=== PATIENT | female | born 1975 | race Caucasian/White ===

== ENCOUNTER → 2017-06-30 | Outpatient (CLI) | payer OTHER | LOC: FIMAGING 10:19 | PROVIDERS: ATTEND Obstetrics & Gynecology | DX: Z12.31 Encounter for screening mammogram for malignant neoplasm of breast (principal) | CPT/HCPCS: G0202 ==

== ENCOUNTER → 2017-10-05 | Outpatient (CLI) | payer OTHER ==
[~2017-10-05] MED LIST: GADOBUTROL 10 ML VIAL IVP ONE
== END ==
LOC: FIMAGING 07:02
PROVIDERS: ATTEND Physician Assistant Surgical
DX: D32.9 Benign neoplasm of meninges, unspecified (principal)
CPT/HCPCS: A9585

== ENCOUNTER 2018-02-15 17:38 | Emergency (ER) | payer OTHER ==
[2018-02-15 17:50] VITALS: BP 113/62
--- NOTE | 2018-02-15 17:59 | EDPHY ---
H & P Stated Complaint: dog bit to finger this pm Time Seen by Provider: 02/15/18 17:40 HPI/ROS: Chief Complaint: Dog bite right index finger HPI: 42-year-old woman was removing a piece of Chew toy from her dog's mouth. The animal inadvertently bit down and she sustained a laceration over the middle phalanx of her right index finger. This happened about 35 min ago. She is up-to-date on her tetanus. No other complaints at this time ROS: 10 point Review of Systems is negative except as noted in the HPI. PMH: Denies Social History: No smoking, no alcohol, no recreational drug use Family History: non-contributory Physical Exam: General: Awake alert, no acute distress Right hand: She has a 1.5 cm flap laceration over the ulnar aspect of her right middle phalanx. There is no joint involvement. Sensations intact distally. Capillary feels normal. Skin: No rash - Personal History LMP (Females 10-55): Post Menopausal Current Tetanus Diphtheria and Acellular Pertussis (TDAP): Yes - Medical/Surgical History Hx Asthma: No Hx Chronic Respiratory Disease: No Hx Diabetes: No Hx Cardiac Disease: No Hx Renal Disease: No Hx Cirrhosis: No Hx Alcoholism: No Hx HIV/AIDS: No Hx Splenectomy or Spleen Trauma: No Other PMH: TONSILS,2 C-SEC,HERNIA, chicken pox, HEMANGIOMA SURG 04/06 - Social History Smoking Status: Never smoked Constitutional: Initial Vital Signs Temperature (C) 36.6 C 02/15/18 17:47 Heart Rate 72 02/15/18 17:47 Respiratory Rate 18 02/15/18 17:47 Blood Pressure 113/62 02/15/18 17:47 O2 Sat (%) 96 02/15/18 17:47 O2 Delivery Mode Room Air Allergies/Adverse Reactions: Penicillins Allergy (Verified 04/20/15 19:30) Sulfa (Sulfonamide Antibiotics) Allergy (Verified 04/20/15 19:30) Home Medications: Medication Instructions Recorded Cholecalciferol Vit D3 [Vitamin D3 2,000 units PO DAILY 03/28/15 (*)] Escitalopram Oxalate [Lexapro 10 10 mg PO DAILY18 03/28/15 MG] Acetaminophen [Tylenol 325mg (*)] 650 mg PO Q4 PRN #30 tab 05/13/15 Cyclobenzaprine [Flexeril 10 MG 10 mg PO QID #60 tab 04/04/15 (*)] Medical Decision Making ED Course/Re-evaluation: Wound was irrigated copiously with 1 L high-pressure irrigation. Given the location and the nature of the wound I have elected to not suture it. It was closed with Steri-Strips by myself and placed a sterile dressing. She has been placed in aluminum foam finger splint by myself. She has been given signs and symptoms of infection to watch for. Otherwise follow up with primary care physician. Departure - Departure Disposition: Home, Routine, Self-Care Clinical Impression: Dog bite Condition: Good Instructions: Laceration Without Closure (ED), Animal Bite (ED) Additional Instructions: Watch for signs of infection including increasing pain, redness, discharge from the wound, streaking up your hand, fevers, or any other concerns. Follow up with primary care in 4-5 days if symptoms are not improving. Referrals: DUYEN BYRD MD [Other] - As per Instructions
== END 2018-02-15 18:50 | disposition home or self-care (01) ==
LOC: CED 17:38
DX: S61.250A Open bite of right index finger without damage to nail, initial encounter (principal); W54.0XXA Bitten by dog, initial encounter

== ENCOUNTER → 2018-07-09 | Outpatient (CLI) | payer OTHER | LOC: FIMAGING 09:02 | PROVIDERS: ATTEND Obstetrics & Gynecology | DX: N60.02 Solitary cyst of left breast (principal) ==

== ENCOUNTER → 2018-10-22 | Outpatient (CLI) | payer OTHER | LOC: FIMAGING 15:09 | PROVIDERS: ATTEND Nurse Practitioner Women's Health | DX: D25.9 Leiomyoma of uterus, unspecified (principal) ==